=== PATIENT | female | born 1985 | race African-American/Black ===

== ENCOUNTER 2025-03-07 19:42 | Emergency (ER) | payer SELFPAY ==
[~2025-03-07] VITALS: Ht 154.9 cm; Wt 70.0 kg
[2025-03-07 20:08] VITALS: O2SAT 99
[2025-03-07] MEDS: KETOROLAC 30MG/ML VIAL IM ONE (23:34)
[2025-03-08] MEDS ORDERED: CEPH500T MT (00:26)
[2025-03-08] MEDS ORDERED: IBUP-1455 MT (00:26)
[2025-03-08] MEDS ORDERED: SULF1TAB48 MT (00:26)
[2025-03-08 00:39] VITALS: BP 106/71; PULSE 64; RESP 18; TEMP 37; O2SAT 99
== END 2025-03-08 00:45 | disposition home or self-care (01) ==
LOC: ER 19:42
DX: L03.011 Cellulitis of right finger (principal); Z79.899 Other long term (current) drug therapy
CPT/HCPCS: 99283; 73140; 96372; J1885